=== PATIENT | female | born 1960 | race Two or more races ===

== ENCOUNTER 2024-07-13 15:52 | Emergency (ER) | payer MEDICARE, OTHER ==
[~2024-07-13] VITALS: Ht 165.1 cm; Wt 61.7 kg
[2024-07-13] MEDS: ACETAMINOPHEN ES 500 MG TABLET PO ONE (16:50)
[2024-07-13] MEDS ORDERED: ACETAMINOPHEN ES 500 MG TABLET ONE (16:53)
[2024-07-13 19:29] VITALS: BP 138/77; TEMP 98.5; O2SAT 98
== END 2024-07-13 19:30 | disposition home or self-care (01) ==
LOC: ER 16:04
DX: S80.02XA Contusion of left knee, initial encounter (principal); S80.01XA Contusion of right knee, initial encounter; S60.221A Contusion of right hand, initial encounter; S09.8XXA Other specified injuries of head, initial encounter; R51.9 Headache, unspecified; J45.909 Unspecified asthma, uncomplicated; E11.9 Type 2 diabetes mellitus without complications; I10 Essential (primary) hypertension; W01.0XXA Fall on same level from slipping, tripping and stumbling without subsequent striking against object, initial encounter; Y93.89 Activity, other specified; Y92.89 Other specified places as the place of occurrence of the external cause; Y99.8 Other external cause status
CPT/HCPCS: 70450-TC; 70486-TC; 73130-TC; 73560-TC